=== PATIENT | female | born 1960 | race Two or more races ===

== ENCOUNTER 2024-09-28 11:05 | Emergency (ER) | payer MEDICAID, SELFPAY ==
[2024-09-28 11:07] VITALS: BMI 25.5
[2024-09-28 11:28] VITALS: BP 106/66; PULSE 89; RESP 16; TEMP 36.9; O2SAT 97; BMI 25.9
--- NOTE | 2024-09-28 11:45 | XR_ITS ---
EXAMINATION: CT abdomen pelvis wo con ORDERING PROVIDER: Pepe SORIA), [employer]ED CIRCUIT BOARD DESIGNER HISTORY: Constipation for 2 weeks TECHNIQUE: Without intravenous or oral contrast, CT was used in the volumetric, helical imaging acquisition of the abdomen and pelvis with 2-D and 3-D reformats generated on a separate workstation and submitted for interpretation. Institutional dose reducing protocols were utilized. Evaluation of hollow viscus and solid viscera is limited secondary to lack of intravenous and oral contrast. RADIATION DOSE: DLP 327 mGy-cm COMPARISON: 07/29/2022, CT abdomen pelvis. FINDINGS: LIVER: Unremarkable. BILIARY: Status post cholecystectomy. PANCREAS: Unremarkable. SPLEEN: Unremarkable. ADRENAL GLANDS: 2 similar-appearing left adrenal nodules measuring 1.7 and 1.5 cm, both less than 0 Hounsfield units. KIDNEYS: Similar trace perinephric fat stranding, likely age-related. URETERS: Unremarkable. BLADDER: Unremarkable. CT provides limited evaluation of the urinary bladder. HOLLOW VISCUS: Moderate to large colonic stool burden. Nonobstructive bowel gas pattern. Appendix normal in diameter. VASCULATURE: Limited evaluation without contrast. Moderate aortoiliac calcific atherosclerotic disease. PELVIS: Mildly lobulated uterus with some associated vascular and other calcifications. Questionable uterine fibroids. LYMPH NODES: Limited evaluation without contrast. Grossly unremarkable. LUNG BASES: Normal. BONES: Mild bony degenerative changes. ABDOMINAL WALL: Normal. IMPRESSION: 1. Moderate to large colonic stool burden without CT findings for obstruction. 2. Similar-appearing left adrenal adenomas measuring up to 1.7 cm.
--- NOTE | 2024-09-28 11:46 | PD.EDRME ---
Rapid Medical Screening Exam RME Arrival date/time: 09/28/24 11:05 64-year-old female presents to the emergency department today complaints of abdominal pain and constipation Chief Complaint: Abdominal Pain Time Seen by Provider: 09/28/24 11:17 Vital signs: Vital Signs Temperature 98.4 F 09/28/24 11:28 Pulse Rate 89 09/28/24 11:28 Respiratory Rate 16 09/28/24 11:28 Blood Pressure 106/66 09/28/24 11:28 Pulse Oximetry (%) 97 09/28/24 11:28 Oxygen Delivery Method Room Air 09/28/24 11:28
[2024-09-28 12:13] LABS: Collection Type, Urine Clean Catch; WBC,Urine 0 /hpf (0-5)
[2024-09-28 12:13] LABS: Basophils # (Auto) 0.1 Thou/mm3 (0.0-0.2); Basophils % (Auto) 1 % (0-2.5); Eosinophils # (Auto) 0.2 Thou/mm3 (0.0-0.5); Eosinophils % (Auto) 4 % (0-10); Hematocrit 43.3 % (36.0-46.0); Immature Granulocytes % (Auto) 0 % (0-0); Immature Granulocytes Auto 0.01 Thou/mm3 (0.00-0.00); Lymphocytes # (Auto) 2.3 Thou/mm3 (1.0-4.8); Lymphocytes % (Auto) 38 % (10-50); Mean Corpuscular HGB Conc 32.3 g/dl (31.0-37.0); Mean Corpuscular Hemoglobin 26.5 pg (25.0-35.0); Mean Corpuscular Volume 82 fL (80-100); Monocytes # (Auto) 0.4 Thou/mm3 (0.0-0.8); Monocytes % (Auto) 6 % (0-12); Neutrophils # (Auto) 3.1 Thou/mm3 (1.8-7.7); Neutrophils % (Auto) 52 % (37-80); Nucleated Red Blood Cell % 0 /100 WBC (0); Platelet Count 366 Thou/mm3 (140-440); Red Blood Count 5.29 Miln/mm3 (4.00-5.20); White Blood Count 6.1 Thou/mm3 (3.6-11.0)
[2024-09-28 12:30] LABS: Alanine Aminotransferase 11 U/L (10-49); Albumin, Serum 4.2 gm/dL (3.4-4.8); Albumin/Globulin Ratio 1.5 (1.2-2.2); Alkaline Phosphatase 106 U/L (46-116); Anion Gap 4 (7-16); Aspartate Amino Transferase 20 U/L (0-34); BUN/Creatinine Ratio 17 Ratio (12-20); Bilirubin,Total 0.6 mg/dL (0.3-1.2); Blood Urea Nitrogen 20 mg/dL (9-23); Calcium 10.2 mg/dL (8.3-10.6); Calcium (Corrected) 10.2 mg/dL (8.5-10.1); Carbon Dioxide 33.7 mMol/L (20.0-31.0); Chloride 103 mMol/L (98-107); Creatinine (Component) 1.2 mg/dL (0.6-1.3); Estimated Creatinine Clearance 39.4 mL/min (>60); Globulin 2.8 gm/dL (2.3-3.5); Glucose 169 mg/dL (74-106); Lipase 32 U/L (12-53); Osmolality,Calculated 287 (275-295); Potassium 4.4 mMol/L (3.4-5.1); Sodium 141 mMol/L (136-145); eGFR 51 See Note
[2024-09-28 12:49] LABS: Bilirubin,Urine Negative (Negative); Blood,Urine Negative (Negative); Budding Yeast,Urine Present; Clarity,Urine Clear (Clear/Hazy); Color,Urine Colorless (Lt Yel-Yel); Culture Indicated,Urine Not Indicated; Glucose, Urine 4+ (Negative); Ketones,Urine Negative (Negative); Leukocyte Esterase,Urine Negative (Negative); Nitrite,Urine Negative (Negative); Protein,Urine Negative (Neg - Trace); RBC,Urine < 1 /hpf (0-3); Specific Gravity,Urine 1.031 (1.001-1.035); Squamous Epithelial Cell,Urine < 1 /hpf (0-5); Urobilinogen,Urine Negative mg/dL (0.0-1.0)
--- NOTE | 2024-09-28 14:01 | PD.EDABDPN ---
ED Abdominal Pain RME/HPI General Chief Complaint: Abdominal Pain Stated complaint: LEFT UPPER ABD PAIN Time seen by provider: 09/28/24 11:17 Arrival date/time: 09/28/24 11:05 64-year-old female presents to the emergency department today complaints of abdominal pain and constipation. Patient reports no fever nausea or vomiting there are no other associated symptoms or aggravating factors no other modifying factors, patient denies taking medication before coming to ER today Limitations: no limitations RME / HPI RME / HPI narrative: 09/28/24 11:05 64-year-old female presents to the emergency department today complaints of abdominal pain and constipation Related Data Home Medications ?Medication ?Instructions ?Recorded ?Confirmed insulin glargine 100 unit/mL (3 30 unit subcut QDAY 10/07/17 07/30/23 mL) subcutaneous pen (Basaglar KwikPen U-100 Insulin) losartan 100 mg tablet 100 mg PO QDAY 10/07/17 07/30/23 aspirin 81 mg chewable tablet 81 mg PO QDAY 12/26/17 07/30/23 Held on 07/31/23. Instructions: Resume on 08/03/23. pravastatin 20 mg tablet 20 mg PO QDAY 12/26/17 07/30/23 carvedilol 3.125 mg tablet (Coreg) 3.125 mg PO BID 07/30/23 07/30/23 chlorthalidone 50 mg tablet 50 mg PO QDAY 07/30/23 07/30/23 sitagliptin phos 50 mg-metformin 1 tab PO BID 07/30/23 07/30/23 ER 1,000 mg tablet,extend rel 24h mp (Janumet XR) verapamil 240 mg tablet,extended 240 mg PO QDAY 07/30/23 07/30/23 release Previous Rx's ?Medication ?Instructions ?Recorded docusate sodium 100 mg capsule 100 mg PO BID #40 caps 07/31/23 (Colace) hydrocodone 7.5 mg-acetaminophen 1 tab PO Q8H PRN pain (scale score 07/31/23 325 mg tablet 7-10) #15 tabs Allergies Allergy/AdvReac Type Severity Reaction Status Date / Time No Known Allergies Allergy Verified 09/28/24 11:07 Review of Systems Review of Systems Systems Reviewed: All systems reviewed, normal except as documented Constitutional Constitutional: Reports system reviewed and no additional complaints, except as documented, Denies fever(s) and Denies headache(s) Eyes Eyes: Reports system reviewed and no additional complaints, except as documented and Denies blurry vision ENT Ears, Nose, Mouth, and Throat: Reports system reviewed and no additional complaints, except as documented, Denies headache(s), Denies nasal congestion and Denies nasal discharge Cardiovascular Cardiovascular: Reports system reviewed and no additional complaints, except as documented, Denies chest pain and Denies dyspnea Respiratory Respiratory: Reports system reviewed and no additional complaints, except as documented, Denies chest congestion, Denies cough and Denies dyspnea Gastrointestinal Gastrointestinal: Reports system reviewed and no additional complaints, except as documented and Denies abdominal pain Integumentary/Breasts Skin/Breast: Reports system reviewed and no additional complaints, except as documented and Denies rash Neurologic Neurologic: Reports system reviewed and no additional complaints, except as documented, Reports as per HPI and Denies headache(s) Past Medical History Past Medical History NEUROLOGIC: Negative Neurological Disorders or Seizures CARDIAC: Positive Cardiac Disorders, Hypercholesterolemia, Hypertension and Varicose Veins; Negative Congestive Heart Failure RESPIRATORY: Positive Tuberculosis (treated 1982); Negative Chronic Obstructive Pulmonary Disease (COPD) GASTROINTESTINAL: Positive Gastrointestinal Disorders and Gall Bladder Disease GENITOURINARY: Positive Genitourinary Disorders and Kidney Stones; Negative Renal Disease REPRODUCTIVE: Positive Previous Pregnancies MUSCULOSKELETAL: Positive Musculoskeletal Disorders and Arthritis ENT: Positive Cataracts (bilateral) ENDOCRINE: Positive Endocrine Disorders and Diabetes Mellitus Type 2; Negative Diabetes Mellitus Type 1 HEMATOLOGIC: Positive Blood Disorders and Anemia OTHER HISTORY: Positive Chicken Pox, Measles and Mumps; Negative Hospitalization, Autoimmune Disease, Shingles, Blood Transfusions, Anesthesia Reactions or Cancer Family History FAMILY HISTORY: Positive Family Cardiac Disorders; Negative Family Psychiatric Problems, Family Respiratory Disorders, Family Gastrointestinal Problems, Family Cancer, Family Surgery or Family Anesthesia Reaction Surgical History SURGICAL: Positive Tubal Ligation and Section (x1) Social History SMOKING STATUS: Never smoker ED Exam General Limitations: Present no limitations General appearance: Present alert and in no apparent distress Head Head exam: Present atraumatic, normocephalic and normal inspection Eye Eye exam: Present normal appearance, PERRL and EOMI; Absent conjunctival injection ENT ENT exam: Present normal exam, normal oropharynx and mucous membranes moist Neck Neck exam: Present normal inspection, full ROM and trachea midline Chest Chest inspection: Present normal inspection and symmetric chest wall rise Respiratory Respiratory exam: Present normal lung sounds bilaterally; Absent respiratory distress, wheezes, stridor, accessory muscle use or prolonged expiratory phase Cardiovascular Cardiovascular exam: Present regular rate, normal rhythm and normal heart sounds Abdominal Exam Abdominal exam: Present soft and normal bowel sounds; Absent distention, tenderness, guarding, rebound or rigidity Abdominal tenderness: Absent RUQ or RLQ Extremities Exam Extremities exam: Present normal inspection and full ROM Back Exam Back exam: Present normal inspection and full ROM Neurological Exam Neurological exam: Present alert, oriented X3, CN II-XII intact, normal gait and reflexes normal; Absent motor sensory deficit Psychiatric Psychiatric exam: Present normal affect and normal mood Skin Skin exam: Present warm, dry, intact and normal color; Absent rash Course Quality Measures none Orders Category Date Time Status CT abdomen pelvis wo con Stat Exams 09/28/24 11:45 Completed CBC Stat Lab 09/28/24 12:01 Completed Comprehensive Metabolic Panel Stat Lab 09/28/24 12:01 Completed Lipase Stat Lab 09/28/24 12:01 Completed UA, C/S IF [Urinalysis, C/S if Indicated] Stat Lab 09/28/24 12:03 Completed Vital Signs Vital signs: Vital Signs Temperature 98.4 F 09/28/24 11:28 Pulse Rate 89 09/28/24 11:28 Respiratory Rate 16 09/28/24 11:28 Blood Pressure 106/66 09/28/24 11:28 Pulse Oximetry (%) 97 09/28/24 11:28 Oxygen Delivery Method Room Air 09/28/24 11:28 o2 sat 97% r/a wnl Abdominal Pain MDM MDM Narrative MDM Narrative:: 64-year-old female presents to the emergency department today complaints of abdominal pain and constipation. Patient reports no fever nausea or vomiting there are no other associated symptoms or aggravating factors no other modifying factors, patient denies taking medication before coming to ER today On exam patient well-appearing patient does not appear ill or toxic patient does not appear to get distress Lab work and imaging obtained no acute emergent findings noted Patient discharged home in no distress to follow-up with primary care doctor in the next 24 to 48 hours and for any worsening symptoms to return to the ER immediately Patient data External records reviewed:: [facility] previous records Clinical information provided by:: patient Social determinants that could affect healthcare access:: none Patient has the following chronic illnesses:: History How is presenting disease/condition affected by chronic disease/condition?: uneffected by Evaluation data The following diagnostics were reviewed and interpreted by me:: lab results and radiology exam(s) Lab and/or radiology exams considered but not ordered:: Labs radiology obtain Interpretation Summary: Reviewed by me Medications / Prescriptions Medications or Prescriptions considered but not ordered:: Given Medication administrations:: given Consultations Consultation(s) initiated? (list below): No Diagnosis Differential diagnosis abdominal pain: abdominal pain, constipation, pancreatitis and small bowel obstruction Most likely diagnosis given after review of the tests above:: Constipation Admission Indicated Admission indicated?: not indicated Admission Request Was there a request for admission?: No Disposition Plan Disposition Plan: Discharge Discharge Attestation Discharge Attestation: The patient and all family members were given an opportunity to ask questions and understood the discharge instructions. Discharge instructions specifically effects, indications for sooner follow up or return to the emergency department, and the expected course of current diagnosis. Patient condition: Stable Discharge Plan Plan Patient Disposition: HOME (Self Care) Disposition Comment: Stable Prescriptions/Referrals Prescriptions/Med Rec: No Action losartan 100 mg Tablet 100 mg PO QDAY insulin glargine [Basaglar KwikPen U-100 Insulin] 100 unit/mL (3 mL) Insulin Pen 30 unit SUB-Q QDAY aspirin 81 mg Tablet,Chewable 81 mg PO QDAY pravastatin 20 mg Tablet 20 mg PO QDAY chlorthalidone 50 mg Tablet 50 mg PO QDAY carvedilol [Coreg] 3.125 mg Tablet 3.125 mg PO BID Rx Instructions: must administer with a meal/food verapamil 240 mg Tablet Extended Release 240 mg PO QDAY Janumet XR 50-1,000 mg Tablet, Er Multiphase 24 Hr 1 tab PO BID docusate sodium [Colace] 100 mg capsule 100 mg PO BID Qty: 40 0RF hydrocodone-acetaminophen 7.5-325 mg tablet 1 tab PO Q8H MDD 3 PRN (Reason: pain (scale score 7-10)) Qty: 15 0RF Referrals: Raymond Minor PA-C [Primary Care Provider] - In 1 week Problem List Clinical Impression: Constipation, Abdominal pain Patient/Caregiver Discharge Instructions Education Materials: Abdominal Pain Additional Instructions: Please follow up with your primary care doctor in the next 24-48hrs for any worsening symptoms return here immediately Print Language: Welsh Stand Alone Forms: Kyara Award Info., Patient Portal Info Letter PA/TELEGRAPH SERVICE CLERK Supervising Physician PA/TELEGRAPH SERVICE CLERK Supervising Physician: Dr. Gallegos
== END 2024-09-28 14:15 | disposition home or self-care (01) ==
PROVIDERS: Nurse Practitioner Primary Care; Emergency Provider Emergency Medicine; PCP Physician Assistant
DX: K59.00 Constipation, unspecified (principal)
CPT/HCPCS: 36415; 74176; 80053; 81001; 83690; 85025; 99284